=== PATIENT | male | born 1980 | race Caucasian/White ===

== ENCOUNTER → 2020-10-21 07:59 | Outpatient (CLI) | payer OTHER, SELFPAY ==
--- NOTE | 2020-10-21 | DI.MRI.S_ITS ---
PROCEDURE: MR KNEE LT WO/W CON INDICATIONS: IDIOPATHIC ASCEPTIC NECROSIS OF LEFT FEMUR TECHNIQUE: Noncontrast sagittal PD fast spin echo and T2 fast spin echo with fat saturation, sagittal 3-D FLASH with fat saturation; coronal T1 spin echo and PD fast spin echo with fat saturation, and axial T1 spin echo and PD fast spin echo with fat saturation through the knee. Post-contrast axial, coronal, and sagittal T1 spin echo with fat saturation through the knee. COMPARISON: None. FINDINGS: Menisci: Medial meniscus intact. Lateral meniscus intact. Cruciate ligaments: Anterior cruciate ligament appears intact. Posterior cruciate ligament appears intact. Medial structures: The medial collateral ligament appears intact. Semimembranosus tendon appears intact. Visualized portions of the pes anserinus tendons appear normal. No abnormal bursal fluid. Lateral structures: The lateral collateral ligament intact. Biceps femoris tendon appears intact. Popliteus tendon grossly unremarkable. Iliotibial band appears intact. Anterior structures: Quadriceps tendon intact. Medial and lateral patellofemoral ligaments intact. There is mild patellar tendinopathy. Prepatellar and superficial infrapatellar subcutaneous edema/fluid. Bones and cartilage: Marrow: No discrete fracture seen. There are geographic areas of heterogeneous signal change within the intramedullary compartment of the proximal tibia as well as the lateral femoral condyle extending to the subchondral surface. These are compatible with bone infarcts/avascular necrosis. There is associated enhancement. No suspicious enhancement identified. Within the medial compartment, no focal cartilage defect. Within the lateral compartment, no focal cartilage defect. Within the patellofemoral compartment, cartilage appears intact. Joint space: No joint effusion. No Cardona's cyst. No specific evidence of intra-articular loose body. 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 No articular surface collapse is seen. Mild patellar tendinopathy Dictated by: Trevor Da Silva M.D. on 10/21/2020 at 10:40 Approved by: Trevor Da Silva M.D. on 10/21/2020 at 10:48
== END ==
PROVIDERS: PCP Orthopaedic Surgery; Referring Provider Orthopaedic Surgery; Visit Provider Orthopaedic Surgery
DX: M87.052 Idiopathic aseptic necrosis of left femur (principal)
CPT/HCPCS: 73723